=== PATIENT | female | born 1980 | race Caucasian/White ===

== ENCOUNTER → 2017-03-14 | Day surgery (SDC) | payer OTHER ==
[~2017-03-14] MED LIST: KETOROLAC TROMETHAMINE 30 MG/ML (IVP) VIAL IV PUSH ONE; MIDAZOLAM HCL 2 MG/2 ML VIAL ONE; ONDANSETRON HCL 4 MG/2 ML VIAL IV PUSH ONE; OXYC1SOL5 PO; PROPOFOL 200 MG/20 ML AMP IV ONE; ceFAZolin 2 GM PREMIX 50 ML ONE
--- NOTE | 2017-03-14 10:25 | MP ---
cc: JACOB MONTGOMERY M.D. DATE OF SURGERY: 03/14/2017 PREOPERATIVE DIAGNOSIS Menometrorrhagia. PROCEDURE Diagnostic hysteroscopy, fractional dilatation and curettage. POSTOPERATIVE DIAGNOSIS Menometrorrhagia. SURGEON Nikhil. ANESTHESIA General with mask ventilation. ESTIMATED BLOOD LOSS None. DRAINS None. OPERATIVE FINDINGS The patient had a midline uterus that was slightly retroverted measuring 9 cm in length, well-supported. There was no focal abnormality involving the external genitalia. The cervix was notable for an ectropion but otherwise symmetrical without any focal abnormality. The endometrial cavity was symmetrical with thick polypoid endometrial surface that was homogeneous, no focal abnormality, no perforation, no mass, no lesion. INDICATION FOR PROCEDURE Patient with recurrent heavy irregular menstrual bleeding despite use of progestin therapy. Recommendation is to proceed with diagnostic hysteroscopy and evaluation under anesthesia. PROCEDURE DESCRIPTION The patient received Ancef 2 grams prophylactically. She underwent general anesthesia with mask ventilation. She was carefully positioned in the dorsal lithotomy position using candy-cane stirrups on her lower extremities. She had sequentials placed for VTE prophylaxis. She was prepped and draped. A timeout was conducted and agreed by all present in the room. Exam revealed the findings stated above. A simple bivalve speculum was used to examine the cervix. A single-tooth tenaculum was used to attach anteriorly. The endocervical curettings were obtained and then a uterine sound was placed gently to about 9 cm. The cervix was then dilated to accommodate a 5 mm rigid hysteroscope which was used to examine the cavity with normal saline as a distention media. Cavity findings were normal. Endometrial curettings were then performed symmetrically and sent in formalin. At the end of the case the final counts were correct. The patient was stable. There was no active bleeding or hematoma. She was taken to the recovery room on room air. MD CARRINGTON Elizabeth/BEBA /7:50 AM /10:14 AM
== END | disposition home or self-care (01) ==
LOC: ESDC 06:29
PROVIDERS: ATTEND Obstetrics & Gynecology
DX: N92.1 Excessive and frequent menstruation with irregular cycle (principal)
CPT/HCPCS: 00952; 58558; 88305; J0690; J1885; J2250; J2405; J3010